=== PATIENT | female | born 1990 | race American Indian/Alaskan Native ===

== ENCOUNTER 2017-09-20 12:13 | Emergency (ER) | payer OTHER ==
[2017-09-20] MEDS ORDERED: TYLENOL PO ONE ×2 (12:35→16:43)
[2017-09-20] MEDS ORDERED: NACL 0.9% 1000 ML 1,000 ML IV ONE (15:14)
[2017-09-20] MEDS ORDERED: MOTRIN PO ONE (15:14)
--- NOTE | 2017-09-20 15:45 | Emergency Department Report ---
- General Chief Complaint: Upper Respiratory Infection Stated Complaint: FLU LIKE SYMPTOMS Time Seen by Provider: 09/20/17 15:14 Source: patient Mode of arrival: Ambulatory Limitations: No Limitations - History of Present Illness Initial Comments: This is a 27-year-old female nontoxic, well nourished in appearance, no acute signs of distress presents to the ED with c/o of nonproductive cough, fever, chills, sore throat x1 day. Patient denies any recent travels, long car rides, or recent hospital stays. Patient denies any chest pain, shortness of breathe, headache, stiff neck, nausea, vomiting, numbness, tingling, blurry vision. Patient denies sick contacts. Patient denies any allergies or PMH. MD Complaint: fever, cough, sore throat, rhinorrhea, nasal congestion, other ( body aches) -: days(s) (1) Severity: mild Severity scale (0 -10): 8 Quality: aching Consistency: constant Improves With: nothing Worsens With: nothing Associated Symptoms: fever, chills, rhinorrhea, nasal congestion, sore throat, cough. denies: myalgias, diaphoresis, headache, stiff neck, chest pain, shortness of breath, abdominal pain, nausea, vomiting, diarrhea, dysuria, rash, confusion, right sweats, weight loss, epistaxis, hoarseness, ear pain Treatments Prior to Arrival: none - Related Data Previous Rx's Medication Instructions Recorded Last Taken Type Doxycycline [Vibramycin CAP] 100 mg PO Q12HR #28 capsule 05/11/16 Unknown Rx metroNIDAZOLE [Flagyl] 500 mg PO Q12HR #14 tab 05/11/16 Unknown Rx Ibuprofen [Motrin] 600 mg PO Q8H PRN #30 tablet 09/20/17 Unknown Rx Oseltamivir [Tamiflu] 75 mg PO BID #14 cap 09/20/17 Unknown Rx Allergies Allergy/AdvReac Type Severity Reaction Status Date / Time No Known Allergies Allergy Verified 02/12/14 16:33 ED Review of Systems ROS: Stated complaint: FLU LIKE SYMPTOMS Other details as noted in HPI Constitutional: chills, fever Eyes: denies: eye pain, eye discharge, vision change ENT: throat pain. denies: ear pain Respiratory: cough. denies: shortness of breath, wheezing Cardiovascular: denies: chest pain, palpitations Endocrine: no symptoms reported Gastrointestinal: denies: abdominal pain, nausea, diarrhea Genitourinary: denies: urgency, dysuria, discharge Musculoskeletal: denies: back pain, joint swelling, arthralgia Skin: denies: rash, lesions Neurological: denies: headache, weakness, paresthesias Psychiatric: denies: anxiety, depression Hematological/Lymphatic: denies: easy bleeding, easy bruising ED Past Medical Hx - Past Medical History Hx Hypertension: No Hx Congestive Heart Failure: No Hx Diabetes: No Hx Deep Vein Thrombosis: No Hx Renal Disease: No Hx Sickle Cell Disease: No Hx Seizures: No Hx Asthma: No Hx COPD: No Hx HIV: No - Social History Smoking Status: Never Smoker Substance Use Type: None - Medications Home Medications: Home Medications Medication Instructions Recorded Confirmed Last Taken Type Doxycycline [Vibramycin CAP] 100 mg PO Q12HR #28 capsule 05/11/16 Unknown Rx metroNIDAZOLE [Flagyl] 500 mg PO Q12HR #14 tab 05/11/16 Unknown Rx Ibuprofen [Motrin] 600 mg PO Q8H PRN #30 tablet 09/20/17 Unknown Rx Oseltamivir [Tamiflu] 75 mg PO BID #14 cap 09/20/17 Unknown Rx ED Physical Exam - General Limitations: No Limitations General appearance: alert, in no apparent distress - Head Head exam: Present: atraumatic, normocephalic, normal inspection - Eye Eye exam: Present: normal appearance, PERRL, EOMI. Absent: scleral icterus, conjunctival injection, nystagmus, periorbital swelling, periorbital tenderness Pupils: Present: normal accommodation - ENT ENT exam: Present: mucous membranes moist, TM's normal bilaterally, normal external ear exam - Expanded ENT Exam Expanded Ear exam: Present: normal external inspection Mouth exam: Present: normal external inspection, tongue normal. Absent: drooling, trismus, muffled voice, tongue elevation, laceration Teeth exam: Present: normal inspection Throat exam: Positive: normal inspection, tonsillar erythema, other (Uvula midline. No abscess or swelling noted. ). Negative: tonsillomegaly, tonsillar exudate, R peritonsillar mass, L peritonsillar mass - Neck Neck exam: Present: normal inspection, full ROM. Absent: tenderness, meningismus, lymphadenopathy, thyromegaly - Respiratory Respiratory exam: Present: normal lung sounds bilaterally. Absent: respiratory distress, wheezes, rales, rhonchi, stridor, chest wall tenderness, accessory muscle use, decreased breath sounds, prolonged expiratory - Cardiovascular Cardiovascular Exam: Present: regular rate, normal rhythm, tachycardia, normal heart sounds. Absent: bradycardia, irregular rhythm, systolic murmur, diastolic murmur, rubs, gallop - GI/Abdominal GI/Abdominal exam: Present: soft, normal bowel sounds. Absent: distended, tenderness, guarding, rebound, rigid, diminished bowel sounds - Rectal Rectal exam: Present: deferred - Extremities Exam Extremities exam: Present: normal inspection, full ROM, normal capillary refill. Absent: tenderness, pedal edema, joint swelling, calf tenderness - Back Exam Back exam: Present: normal inspection, full ROM. Absent: tenderness, CVA tenderness (R), CVA tenderness (L), muscle spasm, paraspinal tenderness, vertebral tenderness, rash noted - Neurological Exam Neurological exam: Present: alert, oriented X3, CN II-XII intact, normal gait, reflexes normal - Psychiatric Psychiatric exam: Present: normal affect, normal mood - Skin Skin exam: Present: warm, dry, intact, normal color. Absent: rash ED Course Vital Signs 09/20/17 09/20/17 12:33 15:13 Temperature 101.6 F H 102.9 F H Pulse Rate 120 H Respiratory 18 22 Rate Blood Pressure 135/87 118/80 O2 Sat by Pulse 100 Oximetry - Reevaluation(s) Reevaluation #1: 09/20/17 15:54 Patient is speaking in full sentences with no signs of distress noted. ED Medical Decision Making - Radiology Data Radiology results: report reviewed interpreted by me: radiologist Normal exam - Medical Decision Making This is a 27-year-old female that presents with influenza. Patient is stable and was examined by me. Chest x-ray has been obtained and the radiologist with normal exam. Patient notified of x-ray results were noted by the patient. Influenza swab obtained and positive for A. patient received Motrin and 800 milligrams by mouth in ED and 1 L normal saline. Vital signs stable and patient is afebrile prior to discharge. Patient was started to increase hydration, and take Motrin during the episodes. Tamiflu has been prescribed for patient. Patient was instructed Follow-up with a primary care doctor in 3- 5 days or if symptoms worsen and continue return to emergency room as soon as possible. At time time of discharge, the patient does not seem toxic or ill in appearance. No acute signs of distress noted. Patient agrees to discharge treatment plan of care. No further questions noted by the patient. Critical care attestation.: If time is entered above; I have spent that time in minutes in the direct care of this critically ill patient, excluding procedure time. ED Disposition Clinical Impression: Influenza A Disposition: DC-01 TO HOME OR SELFCARE Is pt being admited?: No Does the pt Need Aspirin: No Condition: Stable Instructions: Influenza (ED), Oseltamivir (By mouth), Ibuprofen (By mouth) Additional Instructions: Follow-up with a primary care doctor in 3-5 days or if symptoms worsen and continue return to emergency room as soon as possible. Increase hydration, rest and take Motrin as prescribed during fever episode. Prescriptions: Ibuprofen [Motrin] 600 mg PO Q8H PRN #30 tablet PRN Reason: Pain Oseltamivir [Tamiflu] 75 mg PO BID #14 cap Referrals: PRIMARY CAREMD [Primary Care Provider] - 3-5 Days LEYT BENAVIDES MD [Staff Physician] - 3-5 Days [facility] [Outside] - 3-[address] [facility] [Outside] - 3-5 Days Forms: Work/School Release Form(ED)
--- NOTE | 2017-09-20 16:27 | XRay Report ---
FINAL REPORT PROCEDURE: XR CHEST ROUTINE 2V TECHNIQUE: PA and lateral chest radiographs were obtained. CPT 87701 HISTORY: Cough. Fever. COMPARISON: No prior studies are available for comparison. FINDINGS: Heart: Normal. Mediastinum/Vessels: Normal. Lungs/Pleural space: Normal. Bony thorax: No acute osseous abnormality. Other: IMPRESSION: No radiographic evidence of acute cardiopulmonary disease.
[2017-09-20 16:43] VITALS: BP 127/75
== END 2017-09-20 17:40 | disposition home or self-care (01) ==
LOC: ED 12:13
DX: J09.X2 Influenza due to identified novel influenza A virus with other respiratory manifestations (principal); R50.9 Fever, unspecified
CPT/HCPCS: 71046; 87116; 87400; 87430; 96360; 99283; J7030

== ENCOUNTER 2017-11-24 08:45 | Emergency (ER) | payer OTHER ==
[2017-11-24 08:53] VITALS: BP 136/76
--- NOTE | 2017-11-24 10:33 | Emergency Department Report ---
[facility] Chief Complaint: Eye Problems Stated Complaint: PINK EYE Time Seen by Provider: 11/24/17 09:45 Duration: 3 Days Side: Right Severity: mild Symptoms: Yes Eye Redness (now resolved), No Eye Itching, No Eye Pain, No Mucous Drainage, No Purulent Drainage, No Blurred Vision, No Preceding URI, No H /O Allergic Rhinitis, No Contact Lens Use, No Trauma, No Fever Other History: Patient is a 27-year-old female with no prior medical history who presents to ED complaining of waking up on Wednesday morning and seen some mucus in her right eye. Patient states that after that she noticed redness in eyes. Patient denies any trauma, injuries. Patient states that right eye mildly itches and photosensitivity but denies swelling, eye pain or any other problems ED Review of Systems ROS: Stated complaint: PINK EYE Other details as noted in HPI Constitutional: denies: chills, fever Eyes: denies: eye pain, eye discharge, vision change ENT: denies: ear pain, throat pain Respiratory: denies: cough, shortness of breath, wheezing Cardiovascular: denies: chest pain, palpitations Endocrine: no symptoms reported Gastrointestinal: denies: abdominal pain, nausea, diarrhea Genitourinary: denies: urgency, dysuria, discharge Musculoskeletal: denies: back pain, joint swelling, arthralgia Skin: denies: rash, lesions Neurological: denies: headache, weakness, paresthesias Psychiatric: denies: anxiety, depression Hematological/Lymphatic: denies: easy bleeding, easy bruising ED Past Medical Hx - Past Medical History Hx Hypertension: No Hx Congestive Heart Failure: No Hx Diabetes: No Hx Deep Vein Thrombosis: No Hx Renal Disease: No Hx Sickle Cell Disease: No Hx Seizures: No Hx Asthma: No Hx COPD: No Hx HIV: No - Surgical History Past Surgical History?: No - Social History Smoking Status: Never Smoker Substance Use Type: None - Medications Home Medications: Home Medications Medication Instructions Recorded Confirmed Last Taken Type Doxycycline [Vibramycin CAP] 100 mg PO Q12HR #28 capsule 05/11/16 Unknown Rx metroNIDAZOLE [Flagyl] 500 mg PO Q12HR #14 tab 05/11/16 Unknown Rx Ibuprofen [Motrin] 600 mg PO Q8H PRN #30 tablet 09/20/17 Unknown Rx Oseltamivir [Tamiflu] 75 mg PO BID #14 cap 09/20/17 Unknown Rx Ofloxacin [Ocuflox 0.3%] 1 - 2 drop OP BID #1 bottle 11/24/17 Unknown Rx [facility] Exam - Exam General: Vital signs noted. No distress. Alert and acting appropriately. Eye Exam: Right Injection, Neither Chemosis, Neither Abnormal Pupil, Neither EOMI, Neither Eye Foreign Body, Neither Lid Foreign Body, Neither Mucous Discharge, Neither Purulent Discharge HEENT: No Nasal Congestion, No Pharyngeal Erythema Remainder of HEENT: Normal Lungs: Yes Clear Lung Sounds, Yes Good Air Exchange, No Wheezes, No Stridor, No Cough, No Nasal Flaring, No Retractions, No Use of Accessory Muscles Exam: Vision is intact, EOMI, PERRLA. ED Course Vital Signs 11/24/17 08:50 Temperature 98.1 F Pulse Rate 78 Respiratory 18 Rate Blood Pressure 136/76 O2 Sat by Pulse 100 Oximetry ED Medical Decision Making - Medical Decision Making 27 y o female presents with simple conjunctivitis to right eye ED Course: discussed the patient will go home on any eyedrops Discussed the follow-up Department care physician Vital signs are stable she is in no acute distress. Critical care attestation.: If time is entered above; I have spent that time in minutes in the direct care of this critically ill patient, excluding procedure time. ED Disposition Clinical Impression: Conjunctivitis Qualifiers: Conjunctivitis type: acute Acute conjunctivitis type: unspecified Laterality: right Qualified Code(s): H10.31 - Unspecified acute conjunctivitis, right eye Disposition: DC-01 TO HOME OR SELFCARE Is pt being admited?: No Does the pt Need Aspirin: No Condition: Stable Instructions: Conjunctivitis (ED) Additional Instructions: Make sure to follow up with the primary care physician as discussed. Take all your medications as you've been prescribed. If you have any worsening symptoms or develop new symptoms please return to ED immediately. Prescriptions: Ofloxacin [Ocuflox 0.3%] 1 - 2 drop OP BID #1 bottle Referrals: PRIMARY CARE, [Primary Care Provider] - 3-5 Days [facility] [Outside] - 3-5 Days [facility] [Outside] - 3-5 Days Forms: Accompanied Note, Work/School Release Form(ED) Time of Disposition: 10:33
== END 2017-11-24 10:49 | disposition home or self-care (01) ==
LOC: ED 08:45
DX: H10.31 Unspecified acute conjunctivitis, right eye (principal)
CPT/HCPCS: 99282